=== PATIENT | male | born 1945 | race Caucasian/White ===

== ENCOUNTER 2018-07-17 15:32 | Inpatient (IN) | payer MEDICARE, OTHER ==
[2018-07-17] MEDS: ALBUTEROL 0.5% (NEB) 2.5 MG/0.5 ML AMP INH (16:09)
[2018-07-17] MEDS: IPRATROPIUM (NEB) 0.5 MG/2.5 ML AMP INH (16:09)
[2018-07-17 16:13] LABS: WHITE BLOOD COUNT 8.3 10^3/ul (4.8-10.8)
[2018-07-17 16:13] LABS: ADD MAN DIFF? NO; BASOPHILS % 0.5 % (0.0-2.0); EOSINOPHILS # 0.8 10^3/ul (0.0-0.5); EOSINOPHILS % 9.1 % (0.0-7.0); HEMATOCRIT 41.8 % (42.0-52.0); HEMOGLOBIN 14.3 g/dl (14.0-18.0); LYMPHOCYTES # 1.4 10^3/ul (0.8-2.9); LYMPHOCYTES % 16.8 % (15.0-51.0); MEAN CORPUSCULAR HEMOGLOBIN 28.3 pg (29.0-33.0); MEAN CORPUSCULAR HGB CONC 34.2 g/dl (32.0-37.0); MEAN CORPUSCULAR VOLUME 82.8 fl (82.0-101.0); MEAN PLATELET VOLUME 9.6 fl (7.4-10.4); MONOCYTE # 0.9 10^3/ul (0.3-0.9); MONOCYTES % 10.7 % (0.0-11.0); NEUTROPHIL # 5.2 10^3/ul (1.6-7.5); NEUTROPHILS % 62.4 % (39.0-77.0); PLATELET COUNT 220 10^3/UL (140-415); RED BLOOD COUNT 5.05 10^6/ul (4.70-6.10); RED CELL DISTRIBUTION WIDTH 13.5 % (11.5-14.5)
[2018-07-17 16:34] LABS: INR 0.99; PROTIME 13.2 Sec (11.9-14.9)
[2018-07-17 16:35] LABS: PARTIAL THROMBOPLASTIN TIME 30.9 Sec (23.0-35.0)
[2018-07-17 16:43] LABS: ALANINE AMINOTRANSFERASE 29 IU/L (13-69); ALBUMIN 3.9 g/dl (3.3-4.9); ALBUMIN/GLOBULIN RATIO 1.21; ALKALINE PHOSPHATASE 111 IU/L (42-121); AMYLASE 89 U/L (11-123); ANION GAP 6 (5-13); ASPARTATE AMINO TRANSFERASE 33 IU/L (15-46); BILIRUBIN,INDIRECT 1.4 mg/dl (0-1.1); BILIRUBIN,TOTAL 1.4 mg/dl (0.2-1.3); BLOOD UREA NITROGEN 16 mg/dl (7-20); CALCIUM 8.7 mg/dl (8.4-10.2); CARBON DIOXIDE 27 mmol/L (21-31); CHLORIDE 105 mmol/L (97-110); CREATINE KINASE 153 IU/L (23-200); CREATININE 1.03 mg/dl (0.61-1.24); Estimated GFR > 60 mL/min (>60); GLUCOSE 181 mg/dl (70-220); LIPASE 126 U/L (23-300); POTASSIUM 3.2 mmol/L (3.5-5.1); SODIUM 138 mmol/L (135-144); TOTAL PROTEIN 7.1 g/dl (6.1-8.1)
[2018-07-17] MEDS: ASPIRIN 81 MG TAB PO (16:54)
[2018-07-17 16:55] LABS: B-TYPE NATRIURETIC PEPTIDE 320 PG/ML (0-125); CK INDEX 0.9; CK-MB 1.34 ng/ml (0.0-2.4); TROPONIN-I < 0.012 ng/ml (0.000-0.120)
[2018-07-17] MEDS ORDERED: ONDANSETRON 4 MG INJ IV ×2 (17:30→20:00)
[2018-07-17] MEDS ORDERED: ACETAMINOPHEN 325 MG TAB PO ×2 (17:30→20:00)
[2018-07-17] MEDS: FUROSEMIDE 40 MG INJ IV (18:57)
[2018-07-17 19:41] LABS: ADD UMIC NO; UR ASCORBIC ACID 40 mg/dL (NEGATIVE); UR BILIRUBIN (Dip) NEGATIVE (NEGATIVE); UR BLOOD (Dip) NEGATIVE (NEGATIVE); UR CLARITY CLEAR (CLEAR); UR COLOR YELLOW (YELLOW); UR GLUCOSE (Dip) NEGATIVE (NEGATIVE); UR KETONES (Dip) NEGATIVE (NEGATIVE); UR LEUKOCYTE ESTERASE (Dip) NEGATIVE Leu/ul (NEGATIVE); UR NITRITE (Dip) NEGATIVE (NEGATIVE); UR SPECIFIC GRAVITY (Dip) 1.018 (1.003-1.030); UR TOTAL PROTEIN (Dip) NEGATIVE (NEGATIVE); UR UROBILINOGEN (Dip) NEGATIVE (NEGATIVE)
[2018-07-17] MEDS ORDERED: NACL 0.9% 3 ML SYG IV (20:00)
[2018-07-17] MEDS ORDERED: DOCUSATE SODIUM 100 MG CAP PO (20:00)
[2018-07-17] MEDS: INSULIN GLARGINE [LANTus] (100 UNITS/ML) SYG SC (20:00)
[2018-07-17] MEDS: ALBUTEROL/IPRATROPIUM (NEB) 3 ML AMP HHN (20:14)
[2018-07-17] MEDS ORDERED: GLUCAGON 1 MG INJ IM (20:30)
[2018-07-17] MEDS ORDERED: GLUCOSE GEL 15 GRAM TUBE BUCCAL (20:30)
[2018-07-17] MEDS ORDERED: GLUCOSE GEL 15 GRAM TUBE PO ×2 (20:30)
[2018-07-17] MEDS ORDERED: DEXTROSE 50% 50 ML SYRINGE IV ×2 (20:30)
[2018-07-17 20:42] LABS: AADO2 Arterial 73.9 mmHg (7.0-24.0); Allen Test ACCEPTAB; Arterial Base Excess 2.2 mmol/L (-3.0-3); Arterial Blood Gas Oxygen Sat 97.9 mmHG (95.0-98.0); Arterial COHb 0.8 % (0.0-3.0); Arterial Fraction of Oxyhgb 96.6 % (93.0-99.0); Arterial HCO3 27.2 mmol/L (22.0-26.0); Arterial MetHb 0.5 % (0.0-1.5); Arterial pCO2 43.6 mmhg (35-45); MODE NASAL CANNULA; Site Right Radial
[2018-07-17] MEDS: INSULIN ASPART [NOVOLOG] 3 ML PEN SC (21:00)
[2018-07-17] MEDS: ATORVASTATIN 20 MG TAB PO (21:19)
[2018-07-17] MEDS: POTASSIUM CHLORIDE (SR) 20 MEQ TAB PO (21:19)
[2018-07-17] MEDS: METHYLPREDNISOLONE 125 MG INJ IV ×2 (21:21→23:12)
[2018-07-17 21:24] LABS: LACTIC ACID 1.4 mmol/L (0.5-2.0)
[2018-07-17] MEDS: ZOLPIDEM 5 MG TAB PO (23:08)
[2018-07-17 23:48] LABS: LACTIC ACID 1.5 mmol/L (0.5-2.0)
[2018-07-18] MEDS: ACCU-CHEK XX (02:45)
[2018-07-18] MEDS: ALBUTEROL/IPRATROPIUM (NEB) 3 ML AMP HHN ×6 (03:07→21:07)
[2018-07-18] MEDS: INSULIN ASPART [NOVOLOG] 3 ML PEN SC ×8 (03:42→21:55)
[2018-07-18] MEDS ORDERED: ACCU-CHEK XX (05:30)
[2018-07-18 06:18] LABS: AADO2 Arterial 89.2 mmHg (7.0-24.0); Allen Test ACCEPTAB; Arterial Base Excess -2.1 mmol/L (-3.0-3); Arterial COHb 0.1 % (0.0-3.0); Arterial Fraction of Oxyhgb 97.4 % (93.0-99.0); Arterial HCO3 23.1 mmol/L (22.0-26.0); Arterial MetHb 0.5 % (0.0-1.5); Arterial pCO2 41.4 mmhg (35-45); Blood Gas IEPAP 15/5; MODE MASK - BIPAP; Site Right Radial
[2018-07-18] MEDS: METHYLPREDNISOLONE 125 MG INJ IV (06:22)
[2018-07-18 06:27] LABS: HEMOGLOBIN 14.7 g/dl (14.0-18.0); MEAN CORPUSCULAR HEMOGLOBIN 28.1 pg (29.0-33.0); MEAN CORPUSCULAR HGB CONC 33.4 g/dl (32.0-37.0); MEAN CORPUSCULAR VOLUME 84.1 fl (82.0-101.0); MEAN PLATELET VOLUME 9.7 fl (7.4-10.4); PLATELET COUNT 255 10^3/UL (140-415); POSITIVE DIFF @See below; RED BLOOD COUNT 5.23 10^6/ul (4.70-6.10); RED CELL DISTRIBUTION WIDTH 13.7 % (11.5-14.5)
[2018-07-18 06:27] LABS: WHITE BLOOD COUNT 10.9 10^3/ul (4.8-10.8)
[2018-07-18 06:38] LABS: ADD MAN DIFF? YES
[2018-07-18 07:10] LABS: ANION GAP 12 (5-13); BLOOD UREA NITROGEN 20 mg/dl (7-20); CALCIUM 9.2 mg/dl (8.4-10.2); CARBON DIOXIDE 26 mmol/L (21-31); CHLORIDE 104 mmol/L (97-110); CHOL/HDL RATIO 3.2 RATIO; CHOLESTEROL 130 mg/dl (100-200); CREATININE 1.26 mg/dl (0.61-1.24); Estimated GFR 57 mL/min (>60); GLUCOSE 290 mg/dl (70-220); HDL CHOLESTEROL 40 mg/dl (31-75); LDL CHOLESTEROL,CALCULATED 76 mg/dl; MAGNESIUM 1.9 mg/dl (1.7-2.5); PHOSPHORUS 2.4 mg/dl (2.5-4.9); POTASSIUM 3.6 mmol/L (3.5-5.1); SODIUM 142 mmol/L (135-144); TRIGLYCERIDES 72 mg/dl (0-149)
[2018-07-18] MEDS: FUROSEMIDE 40 MG INJ IV (08:10)
[2018-07-18] MEDS: LISINOPRIL 20 MG TAB PO (08:10)
[2018-07-18] MEDS: TAMSULOSIN (SR) 0.4 MG CAP PO (08:10)
[2018-07-18] MEDS: ENOXAPARIN 40 MG/0.4 ML SYG SC (08:19)
[2018-07-18 08:53] LABS: HEMOGLOBIN A1C 6.3 % (0-5.9)
[2018-07-18] MEDS: VENLAFAXINE 25 MG TAB PO (09:00)
[2018-07-18] MEDS: BUDESONIDE (NEB) 0.5MG/2ML AMP HHN ×2 (09:30→21:07)
[2018-07-18 10:29] LABS: ANISOCYTOSIS 1+ (0-0); BAND NEUTROPHILS #M 0.3 10^3/ul (0.0-0.6); BAND NEUTROPHILS % (M) 3 % (0-4); BASOPHIL #M 0.1 10^3/ul (0.0-0.0); BASOPHILS % (M) 1 % (0-2); BURR CELLS 1+ (0-0); LYMPHOCYTES #M 0.5 10^3/ul (0.8-2.9); LYMPHOCYTES % (M) 5 % (15-51); MICROCYTOSIS 1+ (0-0); MONOCYTE #M 0.1 10^3/ul (0.3-0.9); MONOCYTES % (M) 1 % (0-11); PLATELET ESTIMATE NORMAL; POIKILOCYTOSIS 2+ (0-0); SEG NEUT #M 9.8 10^3/ul (1.6-7.5); SEGMENTED NEUTROPHILS (M) % 90 % (39-77); SMUDGE%M 14 % (0-0)
[2018-07-18] MEDS: AZITHROMYCIN 250 MG TAB PO (12:22)
[2018-07-18] MEDS: METHYLPREDNISOLONE 40 MG INJ IV ×2 (14:10→22:04)
[2018-07-18] MEDS: ATORVASTATIN 20 MG TAB PO (21:39)
[2018-07-18] MEDS: INSULIN GLARGINE [LANTus] (100 UNITS/ML) SYG SC (21:55)
[2018-07-19] MEDS: ZOLPIDEM 5 MG TAB PO (00:08)
[2018-07-19] MEDS: ACCU-CHEK XX (02:11)
[2018-07-19] MEDS: ALBUTEROL/IPRATROPIUM (NEB) 3 ML AMP HHN ×4 (02:57→21:54)
[2018-07-19] MEDS: METHYLPREDNISOLONE 40 MG INJ IV ×3 (06:37→21:30)
[2018-07-19] MEDS: BUDESONIDE (NEB) 0.5MG/2ML AMP HHN ×2 (07:40→21:45)
[2018-07-19 08:34] LABS: ADD MAN DIFF? NO
[2018-07-19 08:40] LABS: BASOPHILS % 0.2 % (0.0-2.0); HEMATOCRIT 41.6 % (42.0-52.0); HEMOGLOBIN 14.2 g/dl (14.0-18.0); LYMPHOCYTES # 1.1 10^3/ul (0.8-2.9); LYMPHOCYTES % 5.5 % (15.0-51.0); MEAN CORPUSCULAR HEMOGLOBIN 28.6 pg (29.0-33.0); MEAN CORPUSCULAR HGB CONC 34.1 g/dl (32.0-37.0); MEAN CORPUSCULAR VOLUME 83.9 fl (82.0-101.0); MEAN PLATELET VOLUME 9.8 fl (7.4-10.4); MONOCYTE # 1.1 10^3/ul (0.3-0.9); MONOCYTES % 5.5 % (0.0-11.0); NEUTROPHIL # 18.1 10^3/ul (1.6-7.5); PLATELET COUNT 261 10^3/UL (140-415); RED BLOOD COUNT 4.96 10^6/ul (4.70-6.10)
[2018-07-19 08:40] LABS: WHITE BLOOD COUNT 20.6 10^3/ul (4.8-10.8)
[2018-07-19] MEDS: AZITHROMYCIN 250 MG TAB PO (08:47)
[2018-07-19] MEDS: TAMSULOSIN (SR) 0.4 MG CAP PO (08:47)
[2018-07-19] MEDS: LISINOPRIL 20 MG TAB PO (08:47)
[2018-07-19] MEDS: FUROSEMIDE 20 MG TAB PO (08:48)
[2018-07-19] MEDS: ENOXAPARIN 40 MG/0.4 ML SYG SC (08:58)
[2018-07-19] MEDS: VENLAFAXINE 25 MG TAB PO (08:58)
[2018-07-19] MEDS: INSULIN ASPART [NOVOLOG] 3 ML PEN SC ×7 (08:58→20:15)
[2018-07-19 09:06] LABS: ANION GAP 12 (5-13); BLOOD UREA NITROGEN 37 mg/dl (7-20); CALCIUM 8.8 mg/dl (8.4-10.2); CARBON DIOXIDE 24 mmol/L (21-31); CHLORIDE 103 mmol/L (97-110); CREATININE 1.41 mg/dl (0.61-1.24); Estimated GFR 50 mL/min (>60); GLUCOSE 296 mg/dl (70-220); MAGNESIUM 1.7 mg/dl (1.7-2.5); PHOSPHORUS 3.1 mg/dl (2.5-4.9); POTASSIUM 3.6 mmol/L (3.5-5.1); SODIUM 139 mmol/L (135-144)
[2018-07-19] MEDS: METOPROLOL (XL) 50 MG TAB PO (12:12)
[2018-07-19] MEDS: ALPRAZOLAM 1 MG TAB PO (15:37)
[2018-07-19] MEDS: HYDROCODONE/APAP (5/325) TAB PO (17:59)
[2018-07-19] MEDS: INSULIN GLARGINE [LANTus] (100 UNITS/ML) SYG SC (20:14)
[2018-07-19] MEDS: ATORVASTATIN 20 MG TAB PO (20:15)
[2018-07-20] MEDS: METHYLPREDNISOLONE 40 MG INJ IV (05:41)
[2018-07-20] MEDS: ALBUTEROL/IPRATROPIUM (NEB) 3 ML AMP HHN ×3 (08:04→19:11)
[2018-07-20] MEDS: BUDESONIDE (NEB) 0.5MG/2ML AMP HHN ×2 (08:04→19:11)
[2018-07-20] MEDS: METOPROLOL (XL) 50 MG TAB PO (08:09)
[2018-07-20] MEDS: TAMSULOSIN (SR) 0.4 MG CAP PO (08:09)
[2018-07-20] MEDS: HYDROCODONE/APAP (5/325) TAB PO ×2 (08:09→22:03)
[2018-07-20] MEDS: LISINOPRIL 20 MG TAB PO (08:10)
[2018-07-20] MEDS: AZITHROMYCIN 250 MG TAB PO (08:14)
[2018-07-20] MEDS: INSULIN ASPART [NOVOLOG] 3 ML PEN SC ×7 (08:39→20:34)
[2018-07-20] MEDS: ENOXAPARIN 40 MG/0.4 ML SYG SC (08:42)
[2018-07-20] MEDS: VENLAFAXINE 25 MG TAB PO (09:00)
[2018-07-20] MEDS: METHYLPREDNISOLONE 125 MG INJ IV ×3 (13:31→23:04)
[2018-07-20] MEDS: LINAGLIPTIN 5 MG TABLET PO (13:31)
[2018-07-20] MEDS: ATORVASTATIN 20 MG TAB PO (20:24)
[2018-07-20] MEDS: INSULIN GLARGINE [LANTus] (100 UNITS/ML) SYG SC (20:33)
[2018-07-21] MEDS: morphine 2 MG INJ IV (00:08)
[2018-07-21] MEDS: ALPRAZOLAM 1 MG TAB PO (01:34)
[2018-07-21] MEDS: ALBUTEROL/IPRATROPIUM (NEB) 3 ML AMP HHN ×4 (01:39→19:34)
[2018-07-21] MEDS: FUROSEMIDE 40 MG INJ IV (06:02)
[2018-07-21] MEDS: METHYLPREDNISOLONE 125 MG INJ IV ×4 (06:02→23:12)
[2018-07-21] MEDS: BUDESONIDE (NEB) 0.5MG/2ML AMP HHN ×2 (08:06→19:34)
[2018-07-21] MEDS: INSULIN ASPART [NOVOLOG] 3 ML PEN SC ×7 (08:37→20:06)
[2018-07-21] MEDS: TAMSULOSIN (SR) 0.4 MG CAP PO (08:47)
[2018-07-21] MEDS: LINAGLIPTIN 5 MG TABLET PO (08:47)
[2018-07-21] MEDS: METOPROLOL (XL) 50 MG TAB PO (08:48)
[2018-07-21] MEDS: LISINOPRIL 20 MG TAB PO (08:48)
[2018-07-21] MEDS: ENOXAPARIN 40 MG/0.4 ML SYG SC (08:51)
[2018-07-21] MEDS: AZITHROMYCIN 250 MG TAB PO (08:53)
[2018-07-21] MEDS: VENLAFAXINE 25 MG TAB PO (08:54)
[2018-07-21] MEDS: ATORVASTATIN 20 MG TAB PO (20:06)
[2018-07-21] MEDS: HYDROCODONE/APAP (5/325) TAB PO (20:06)
[2018-07-21] MEDS: INSULIN GLARGINE [LANTus] (100 UNITS/ML) SYG SC (20:10)
[2018-07-21] MEDS: ZOLPIDEM 5 MG TAB PO (23:41)
[2018-07-22] MEDS: morphine 2 MG INJ IV (01:55)
[2018-07-22] MEDS: LORAZEPAM 2 MG INJ IV (02:52)
[2018-07-22] MEDS: DILTIAZEM 25 MG INJ IV (02:52)
[2018-07-22] MEDS: METHYLPREDNISOLONE 125 MG INJ IV ×4 (05:02→23:09)
[2018-07-22] MEDS: INSULIN ASPART [NOVOLOG] 3 ML PEN SC ×7 (08:07→20:15)
[2018-07-22] MEDS: ALBUTEROL/IPRATROPIUM (NEB) 3 ML AMP HHN ×4 (08:30→23:19)
[2018-07-22] MEDS: BUDESONIDE (NEB) 0.5MG/2ML AMP HHN ×2 (08:30→20:09)
[2018-07-22] MEDS: ENOXAPARIN 40 MG/0.4 ML SYG SC (08:49)
[2018-07-22] MEDS: TAMSULOSIN (SR) 0.4 MG CAP PO (08:50)
[2018-07-22] MEDS: LISINOPRIL 20 MG TAB PO (08:50)
[2018-07-22] MEDS: LINAGLIPTIN 5 MG TABLET PO (08:51)
[2018-07-22] MEDS: METOPROLOL (XL) 50 MG TAB PO ×2 (08:51→11:46)
[2018-07-22] MEDS: AZITHROMYCIN 250 MG TAB PO (08:54)
[2018-07-22] MEDS: VENLAFAXINE 25 MG TAB PO (09:43)
[2018-07-22] MEDS ORDERED: METOPROLOL (XL) 50 MG TAB PO ×2 (11:00→11:30)
[2018-07-22] MEDS: ATORVASTATIN 20 MG TAB PO (20:15)
[2018-07-22] MEDS: INSULIN GLARGINE [LANTus] (100 UNITS/ML) SYG SC (20:18)
[2018-07-23] MEDS: METHYLPREDNISOLONE 125 MG INJ IV ×3 (05:34→17:22)
[2018-07-23] MEDS: INSULIN ASPART [NOVOLOG] 3 ML PEN SC ×7 (08:09→20:14)
[2018-07-23] MEDS: ALBUTEROL/IPRATROPIUM (NEB) 3 ML AMP HHN ×3 (08:36→19:48)
[2018-07-23] MEDS: BUDESONIDE (NEB) 0.5MG/2ML AMP HHN ×2 (08:36→19:48)
[2018-07-23] MEDS: METOPROLOL (XL) 50 MG TAB PO (08:50)
[2018-07-23] MEDS: VENLAFAXINE 25 MG TAB PO (08:51)
[2018-07-23] MEDS: TAMSULOSIN (SR) 0.4 MG CAP PO (08:51)
[2018-07-23] MEDS: LINAGLIPTIN 5 MG TABLET PO (08:51)
[2018-07-23] MEDS: LISINOPRIL 20 MG TAB PO (08:51)
[2018-07-23] MEDS: ENOXAPARIN 40 MG/0.4 ML SYG SC (08:55)
[2018-07-23] MEDS: ATORVASTATIN 20 MG TAB PO (20:06)
[2018-07-23] MEDS: INSULIN GLARGINE [LANTus] (100 UNITS/ML) SYG SC (20:14)
[2018-07-23] MEDS: ZOLPIDEM 5 MG TAB PO (21:57)
[2018-07-24] MEDS: METHYLPREDNISOLONE 125 MG INJ IV ×3 (00:11→11:58)
[2018-07-24] MEDS: ALPRAZOLAM 1 MG TAB PO (04:49)
[2018-07-24] MEDS: TAMSULOSIN (SR) 0.4 MG CAP PO (08:08)
[2018-07-24] MEDS: LINAGLIPTIN 5 MG TABLET PO (08:09)
[2018-07-24] MEDS: VENLAFAXINE 25 MG TAB PO (08:09)
[2018-07-24] MEDS: METOPROLOL (XL) 50 MG TAB PO (08:10)
[2018-07-24] MEDS: LISINOPRIL 20 MG TAB PO (08:10)
[2018-07-24] MEDS: ALBUTEROL/IPRATROPIUM (NEB) 3 ML AMP HHN ×2 (08:16→13:42)
[2018-07-24] MEDS: BUDESONIDE (NEB) 0.5MG/2ML AMP HHN (08:17)
[2018-07-24] MEDS: INSULIN ASPART [NOVOLOG] 3 ML PEN SC ×6 (08:19→17:26)
[2018-07-24] MEDS: ENOXAPARIN 40 MG/0.4 ML SYG SC (08:20)
[2018-07-24] MEDS ORDERED: METHYLPREDNISOLONE 125 MG INJ IV (21:00)
== END 2018-07-24 18:25 | disposition home or self-care (01) | DRG 202 ==
LOC: E/R 15:32 → TEL 17:27
PROVIDERS: Internal Medicine
PROC: 3E0F7GC Introduction of Other Therapeutic Substance into Respiratory Tract, Via Natural or Artificial Opening (ICD-10-PCS; principal; 2018-07-17)
DX: J45.901 Unspecified asthma with (acute) exacerbation (principal); J96.21 Acute and chronic respiratory failure with hypoxia; E11.8 Type 2 diabetes mellitus with unspecified complications; I11.0 Hypertensive heart disease with heart failure; E66.01 Morbid (severe) obesity due to excess calories; I50.9 Heart failure, unspecified; N40.0 Benign prostatic hyperplasia without lower urinary tract symptoms; E78.5 Hyperlipidemia, unspecified; E87.6 Hypokalemia; Z68.33 Body mass index [BMI] 33.0-33.9, adult
CPT/HCPCS: 36415; 36600; 71045; 80048; 80053; 80061; 81003; 82150; 82550; 82553; 82803; 82962; 83036; 83605; 83690; 83735; 83880; 84100; 84484; 85025; 85610; 85730; 87040-91; 87086; 87400; 93005; 93306; 94640; 94644; 94660; 94664; 99285-25